=== PATIENT | female | born 1935 | race Caucasian/White ===

== ENCOUNTER → 2016-06-19 | Outpatient (CLI) | payer MEDICARE ==
[2016-06-19 08:59] LABS: AUTOMATED NEUTROPHIL # 3.9 TH/MM3 (1.8-7.7); BASOPHIL % 0.7 % (0.0-2.0); EOSINOPHIL # 0.1 TH/MM3 (0-0.4); EOSINOPHIL % 1.4 % (0.0-4.0); HEMATOCRIT 46.5 % (35.0-46.0); HEMO FLAGS DIFF FINAL; LYMPH % 24.2 % (9.0-44.0); LYMPHOCYTE # 1.5 TH/MM3 (1.0-4.8); MEAN CELL VOLUME 90.3 FL (80.0-100.0); MEAN CORPUSCULAR HEMOGLOBIN 29.8 PG (27.0-34.0); NEUT % 64.7 % (16.0-70.0); PLATELET COUNT 226 TH/MM3 (150-450); RED BLOOD COUNT 5.15 MIL/MM3 (4.00-5.30); RED CELL DISTRIBUTION WIDTH 14.2 % (11.6-17.2); WHITE BLOOD COUNT 6.1 TH/MM3 (4.0-11.0)
[2016-06-19 10:06] LABS: ALKALINE PHOSPHATASE 50 U/L (45-117); ALT (GPT) 21 U/L (10-53); ANION GAP 5 MEQ/L (5-15); AST (GOT) 10 U/L (15-37); BLOOD UREA NITROGEN 17 MG/DL (7-18); CHLORIDE 104 MEQ/L (98-107); GLOMERULAR FILTRATION RATE 48 ML/MIN (>89); GLUCOSE,FASTING 113 MG/DL (74-99); HDL CHOLESTEROL 70.3 MG/DL (40.0-60.0); LDL CHOLESTEROL 62 MG/DL (0-99); POTASSIUM 5.2 MEQ/L (3.5-5.1); SODIUM (NA) 140 MEQ/L (136-145); TOTAL BILIRUBIN ADULT 1.3 MG/DL (0.2-1.0)
[2016-06-19 10:50] LABS: MICRO ALBUMIN RANDOM URINE RAW 12.2 MG/L (0.0-30.0)
[2016-06-19 12:38] LABS: HEMOGLOBIN A1a 1.5 %; HEMOGLOBIN A1b 1.6 %; HEMOGLOBIN LA1C 2.1 %
[2016-06-19 12:39] LABS: HEMOGLOBIN Ao 84.3 %; HEMOGLOBIN P3 3.9 %
== END ==
LOC: ELAB 07:33
PROVIDERS: ATTEND Specialist
DX: E78.00 Pure hypercholesterolemia, unspecified (principal); R73.01 Impaired fasting glucose; E55.9 Vitamin D deficiency, unspecified; I10 Essential (primary) hypertension
CPT/HCPCS: 36415; 80053; 80061; 82043; 82306; 83036; 84443; 85025

== ENCOUNTER → 2016-10-25 | Outpatient (CLI) | payer MEDICARE ==
[2016-10-25 08:57] LABS: AUTOMATED NEUTROPHIL # 3.7 TH/MM3 (1.8-7.7); BASOPHIL # 0.1 TH/MM3 (0-0.2); BASOPHIL % 2.3 % (0.0-2.0); EOSINOPHIL # 0.1 TH/MM3 (0-0.4); EOSINOPHIL % 1.1 % (0.0-4.0); HEMATOCRIT 46.1 % (35.0-46.0); LYMPH % 22.1 % (9.0-44.0); LYMPHOCYTE # 1.2 TH/MM3 (1.0-4.8); MEAN CELL VOLUME 91.2 FL (80.0-100.0); MEAN CORPUSCULAR HEMOGLOBIN 29.5 PG (27.0-34.0); MEAN CORPUSCULAR HGB CONC 32.3 % (32.0-36.0); MONO % 9.4 % (0.0-8.0); NEUT % 65.1 % (16.0-70.0); PLATELET COUNT 225 TH/MM3 (150-450); RED BLOOD COUNT 5.06 MIL/MM3 (4.00-5.30); RED CELL DISTRIBUTION WIDTH 14.5 % (11.6-17.2); WHITE BLOOD COUNT 5.6 TH/MM3 (4.0-11.0)
[2016-10-25 09:10] LABS: HEMO FLAGS DIFF FINAL
[2016-10-25 10:26] LABS: ANION GAP 5 MEQ/L (5-15); BICARBONATE 29.9 MEQ/L (21.0-32.0); BLOOD UREA NITROGEN 14 MG/DL (7-18); CHLORIDE 104 MEQ/L (98-107); POTASSIUM 4.5 MEQ/L (3.5-5.1); SODIUM (NA) 139 MEQ/L (136-145)
[2016-10-25 10:31] LABS: AST (GOT) 15 U/L (15-37); GLOMERULAR FILTRATION RATE 52 ML/MIN (>89); GLUCOSE,FASTING 113 MG/DL (74-99)
[2016-10-25 10:42] LABS: ALKALINE PHOSPHATASE 54 U/L (45-117); ALT (GPT) 20 U/L (10-53); FREE T3 2.72 PG/ML (2.18-3.98); FREE T4 1.07 NG/DL (0.76-1.46); HDL CHOLESTEROL 61.5 MG/DL (40.0-60.0); LDL CHOLESTEROL 144 MG/DL (0-99); TOTAL BILIRUBIN ADULT 1.2 MG/DL (0.2-1.0)
[2016-10-25 16:57] LABS: HEMOGLOBIN A1a 1.1 %; HEMOGLOBIN A1b 1.7 %; HEMOGLOBIN Ao 84.8 %; HEMOGLOBIN P3 5.3 %
== END ==
LOC: ELAB 07:30
PROVIDERS: ATTEND Specialist
DX: E78.00 Pure hypercholesterolemia, unspecified (principal); I48.91 Unspecified atrial fibrillation; R73.01 Impaired fasting glucose; E78.01 Familial hypercholesterolemia; I10 Essential (primary) hypertension
CPT/HCPCS: 36415; 80053; 80061; 83036; 84439; 84443; 84481; 85025

== ENCOUNTER → 2017-04-09 | Outpatient (CLI) | payer MEDICARE ==
[2017-04-09 12:15] LABS: INTERNATIONAL NORMALIZED RATIO 3.1 RATIO; PROTHROMBIN TIME - PATIENT 35.6 SEC (9.8-11.6)
== END ==
LOC: ELAB 09:05
PROVIDERS: ATTEND Specialist
DX: I48.91 Unspecified atrial fibrillation (principal)
CPT/HCPCS: 36415; 85610

== ENCOUNTER → 2017-05-08 | Outpatient (CLI) | payer MEDICARE ==
[2017-05-08 12:37] LABS: INTERNATIONAL NORMALIZED RATIO 2.9 RATIO; PROTHROMBIN TIME - PATIENT 29.7 SEC (9.8-11.6)
== END ==
LOC: ELAB 08:21
PROVIDERS: ATTEND Specialist
DX: I48.91 Unspecified atrial fibrillation (principal)
CPT/HCPCS: 36415; 85610

== ENCOUNTER → 2017-06-08 | Outpatient (CLI) | payer MEDICARE ==
[2017-06-08 11:58] LABS: INTERNATIONAL NORMALIZED RATIO 2.4 RATIO; PROTHROMBIN TIME - PATIENT 24.3 SEC (9.8-11.6)
== END ==
LOC: ELAB 10:09
PROVIDERS: ATTEND Specialist
DX: I48.91 Unspecified atrial fibrillation (principal)
CPT/HCPCS: 36415; 85610

== ENCOUNTER → 2017-06-29 | Outpatient (CLI) | payer MEDICARE ==
[2017-06-29 09:54] LABS: CHOLESTEROL 227 MG/DL (120-200); TRIGLYCERIDES 103 MG/DL (42-150)
[2017-06-29 09:57] LABS: CHOLESTEROL/ HDL RATIO 3.72 RATIO; HDL CHOLESTEROL 60.9 MG/DL (40.0-60.0); LDL CHOLESTEROL 146 MG/DL (0-99)
[2017-06-29 15:16] LABS: HEMOGLOBIN A1C 6.1 % (4.3-6.0)
== END ==
LOC: ELAB 07:43
PROVIDERS: ATTEND Specialist
DX: R73.01 Impaired fasting glucose (principal); E78.00 Pure hypercholesterolemia, unspecified
CPT/HCPCS: 36415; 80061; 83036

== ENCOUNTER → 2017-07-09 | Outpatient (CLI) | payer MEDICARE ==
[2017-07-09 12:35] LABS: INTERNATIONAL NORMALIZED RATIO 2.2 RATIO; PROTHROMBIN TIME - PATIENT 22.7 SEC (9.8-11.6)
== END ==
LOC: ELAB 08:37
PROVIDERS: ATTEND Specialist
DX: I48.91 Unspecified atrial fibrillation (principal)
CPT/HCPCS: 36415; 85610

== ENCOUNTER → 2017-08-06 | Outpatient (CLI) | payer MEDICARE ==
[2017-08-06 14:09] LABS: INTERNATIONAL NORMALIZED RATIO 2.6 RATIO; PROTHROMBIN TIME - PATIENT 25.9 SEC (9.8-11.6)
== END ==
LOC: ELAB 10:08
PROVIDERS: ATTEND Specialist
DX: I48.91 Unspecified atrial fibrillation (principal)
CPT/HCPCS: 36415; 85610

== ENCOUNTER → 2017-09-06 | Outpatient (CLI) | payer MEDICARE ==
[2017-09-06 13:08] LABS: INTERNATIONAL NORMALIZED RATIO 2.3 RATIO; PROTHROMBIN TIME - PATIENT 23.4 SEC (9.8-11.6)
== END ==
LOC: ELAB 10:21
DX: I48.91 Unspecified atrial fibrillation (principal)
CPT/HCPCS: 36415; 85610

== ENCOUNTER → 2017-10-05 | Outpatient (CLI) | payer MEDICARE ==
[2017-10-05 12:23] LABS: INTERNATIONAL NORMALIZED RATIO 2.8 RATIO; PROTHROMBIN TIME - PATIENT 28.2 SEC (9.8-11.6)
== END ==
LOC: ELAB 08:39
PROVIDERS: ATTEND Specialist
DX: I48.91 Unspecified atrial fibrillation (principal)
CPT/HCPCS: 36415; 85610

== ENCOUNTER → 2017-11-06 | Outpatient (CLI) | payer MEDICARE ==
[2017-11-06 12:48] LABS: INTERNATIONAL NORMALIZED RATIO 2.9 RATIO; PROTHROMBIN TIME - PATIENT 29.4 SEC (9.8-11.6)
== END ==
LOC: ELAB 11:05
PROVIDERS: ATTEND Specialist
DX: I48.91 Unspecified atrial fibrillation (principal)
CPT/HCPCS: 36415; 85610